=== PATIENT | male | born 1975 | race Caucasian/White ===

== ENCOUNTER 2021-12-03 16:05 | Observation (INO) ==
[2021-12-03] MEDS ORDERED: Naloxone 0.4 MG/ML INJ IVP PRN (18:30)
[2021-12-03] MEDS ORDERED: *HR* HYDROcodone/Acet 5/325 mg TABLET PO PRN (18:30)
[2021-12-03] MEDS ORDERED: Ondansetron 4 MG/2 ML VIAL IVP PRN (18:30)
[2021-12-03] MEDS ORDERED: Melatonin 3 MG TABLET PO PRN (18:30)
[2021-12-03] MEDS: Acetaminophen 325 MG TABLET PO PRN (19:24)
[2021-12-03] MEDS ORDERED: 0.9 % Sodium Chloride 1,000 ML IVC ONE (19:56)
[2021-12-03] MEDS ORDERED: Dextrose Gel 15 GM/37.5 ML TUBE PO PRN ×2 (20:09)
[2021-12-03] MEDS ORDERED: D5% in Water 1,000 ML IVC PRN (20:09)
[2021-12-03] MEDS ORDERED: *HR* Dextrose 50 % in Water (Syg) 50 ML SYRINGE IVP PRN (20:09)
[2021-12-03] MEDS: Ketorolac 30 MG/ML VIAL IVP PRN (22:41)
[2021-12-04] MEDS: Insulin LISPRO 300 UNITS/3 ML VIAL SUBQ SCH ×4 (01:13→17:58)
[2021-12-04] MEDS: Acetaminophen 325 MG TABLET PO PRN (02:55)
[2021-12-04 05:27] LABS: Basophils # 0.1 K/mcL (0.0-0.2); Basophils % 0.5 %; Eosinophils # 0.1 K/mcL (0.0-0.6); Eosinophils % 0.6 %; Hematocrit 33.3 % (37.5-50.1); Immature Granulocytes % 0.4 % (0-4); Lymphocytes # 0.9 K/mcL (0.6-4.6); Lymphocytes % 9.6 %; Mean Corpuscular HGB Conc 31.8 g/dL (31.6-35.5); Mean Corpuscular Hemoglobin 24.8 pg (28.0-33.3); Mean Corpuscular Volume 77.8 fL (83.0-100.0); Mean Platelet Volume 10.6 fL (9.4-12.4); Monocytes # 1.3 K/mcL (0.0-1.3); Monocytes % 13.8 %; Platelet Count 252 K/mcL (140-400); Red Blood Count 4.28 M/mcL (4.19-5.50); Red Cell Distribution Width 14.6 % (11.5-14.5); Segmented Neutrophils % 75.1 %; White Blood Count 9.3 K/mcL (4.3-11.1)
[2021-12-04 05:28] LABS: Hemoglobin 10.6 g/dL (12.9-16.9)
[2021-12-04] MEDS: Ketorolac 30 MG/ML VIAL IVP PRN ×2 (05:31→17:42)
[2021-12-04 05:47] LABS: BUN/Creatinine Ratio 20 (6-26); Blood Urea Nitrogen 16 mg/dL (6-20); Calcium 8.4 mg/dL (8.6-10.3); Carbon Dioxide 26 mEq/L (23-29); Chloride 104 mEq/L (98-107); Glucose 114 mg/dL (70-105); Osmolality,Calculated 284 (280-300); Potassium 3.5 mEq/L (3.5-5.1); Sodium 136 mEq/L (136-145); eGFR For African Americans > 60 (> 60); eGFR For Non-African Americans > 60 (> 60)
[2021-12-04] MEDS ORDERED: Isovue-300 50ML VIAL ONE (07:09)
[2021-12-04] MEDS ORDERED: *HR* Midazolam HCl 2 MG/2 ML VIAL ONE (07:10)
[2021-12-04] MEDS ORDERED: *HR* FentaNYL (PF) 100 MCG/2 ML VIAL ONE (07:10)
[2021-12-04] MEDS ORDERED: *HR* Propofol 200 MG/20 ML VIAL IVP ONE (07:10)
[2021-12-04] MEDS ORDERED: Ondansetron 4 MG/2 ML VIAL ONE (07:10)
[2021-12-04] MEDS ORDERED: Lidocaine -MPF 2% 5 ML VIAL ONE (07:10)
[2021-12-04] MEDS ORDERED: *HR* HYDROmorphone PF 0.5 MG/0.5 ML SYRINGE IVP PRN (07:16)
[2021-12-04] MEDS ORDERED: Ondansetron 4 MG/2 ML VIAL IVP PRN ×2 (07:16→19:28)
[2021-12-04] MEDS ORDERED: Ketorolac 30 MG/ML VIAL ONE (08:11)
[2021-12-04] MEDS ORDERED: DilTIAZem CD (24hr) 120 MG CAP.ER.24H PO SCH (09:00)
[2021-12-04] MEDS ORDERED: cefTRIAXone 1,000 MG in 0.9 % Sodium Chloride 10 ML IVP ONE (09:00)
[2021-12-04] MEDS: Ampicillin/Sulbactam 3,000 MG in 0.9 % Sodium Chloride Mini Bag 100 ML IVPB SCH ×2 (10:52→17:40)
[2021-12-04 12:51] LABS: Folate 10.3 ng/mL (3.0-16.0)
[2021-12-04 13:04] LABS: Ferritin 190 ng/mL (20-250); Iron < 10 mcg/dL (65-175); Phosphorous 2.4 mg/dL (2.7-4.5); Transferrin 167 mg/dL (203-362)
[2021-12-04] MEDS ORDERED: Melatonin 3 MG TABLET PO PRN (19:28)
[2021-12-04] MEDS ORDERED: Acetaminophen 325 MG TABLET PO PRN (19:28)
[2021-12-04] MEDS ORDERED: Dextrose Gel 15 GM/37.5 ML TUBE PO PRN ×2 (19:28)
[2021-12-04] MEDS ORDERED: *HR* Dextrose 50 % in Water (Syg) 50 ML SYRINGE IVP PRN (19:28)
[2021-12-04] MEDS ORDERED: D5% in Water 1,000 ML IVC PRN (19:28)
[2021-12-04] MEDS ORDERED: Ketorolac 30 MG/ML VIAL IVP PRN (19:28)
[2021-12-04] MEDS ORDERED: Naloxone 0.4 MG/ML INJ IVP PRN (19:28)
[2021-12-05] MEDS: Insulin LISPRO 300 UNITS/3 ML VIAL SUBQ SCH ×2 (00:24→06:34)
[2021-12-05] MEDS: Ampicillin/Sulbactam 3,000 MG in 0.9 % Sodium Chloride Mini Bag 100 ML IVPB SCH ×2 (00:25→06:31)
[2021-12-05 06:37] VITALS: BP 114/73; PULSE 64; TEMP 97.7
[2021-12-05] MEDS ORDERED: Cyanocobalamin (B-12) 1,000 MCG/ML VIAL SQ ONE (07:19)
[2021-12-05 07:29] VITALS: O2SAT 92
[2021-12-05 08:15] LABS: Basophils % 0.1 %; Hematocrit 35.3 % (37.5-50.1); Immature Granulocytes % 0.5 % (0-4); Lymphocytes # 0.9 K/mcL (0.6-4.6); Lymphocytes % 11.9 %; Mean Corpuscular HGB Conc 31.2 g/dL (31.6-35.5); Mean Corpuscular Hemoglobin 24.7 pg (28.0-33.3); Mean Corpuscular Volume 79.3 fL (83.0-100.0); Mean Platelet Volume 9.8 fL (9.4-12.4); Monocytes # 0.6 K/mcL (0.0-1.3); Monocytes % 7.6 %; Neutrophils # 6.2 K/mcL (1.6-8.9); Platelet Count 272 K/mcL (140-400); Red Blood Count 4.45 M/mcL (4.19-5.50); Red Cell Distribution Width 14.4 % (11.5-14.5); Segmented Neutrophils % 79.9 %; White Blood Count 7.7 K/mcL (4.3-11.1)
[2021-12-05] MEDS ORDERED: Apixaban 5 MG TABLET PO SCH (09:00)
[2021-12-05] MEDS ORDERED: Insulin DETEMIR 100 UNIT/ML X5UNITS SUBQ SCH ×2 (09:00)
[2021-12-05] MEDS ORDERED: DilTIAZem CD (24hr) 120 MG CAP.ER.24H PO SCH (09:00)
[2021-12-05] MEDS ORDERED: Aspirin 81 MG TAB.CHEW PO SCH (09:00)
== END 2021-12-05 10:48 | disposition home or self-care (01) ==
LOC: 3BNU → SUATTDRO 18:19
PROVIDERS: ADMIT Internal Medicine; ATTEND Internal Medicine